=== PATIENT | male | born 1980 | race Caucasian/White ===

== ENCOUNTER 2018-12-09 15:16 | Observation (INO) | payer BC ==
[2018-12-09 16:09] VITALS: BMI 25.1
[2018-12-09] MEDS ORDERED: PANTOPRAZOLE 40 MG TABLET PO STA (16:59)
[2018-12-09 17:07] LABS: Basophils # (A) 0.1 k/uL (0-0.2); Basophils % (A) 2 %; Eosinophils # (A) 0.1 k/uL (0-0.7); Eosinophils % (A) 1 %; HCT 41.9 % (39.0-53.0); HGB 14.3 gm/dL (13.0-17.5); Lymphocytes # (A) 2.4 k/uL (1.0-4.8); Lymphocytes % (A) 33 %; MCH 31.9 pg (25.0-35.0); MCHC 34.2 g/dL (31.0-37.0); MCV 93.2 fL (80.0-100.0); Mean Platelet Volume 6.3; Monocytes # (A) 0.5 k/uL (0-1.0); Monocytes % (A) 8 %; Neutrophils # (A) 3.8 k/uL (1.3-7.7); Neutrophils % (A) 53 %; Platelet Count 431 k/uL (150-450); RBC 4.49 m/uL (4.30-5.90); RDW 12.5 % (11.5-15.5); WBC 7.2 k/uL (3.8-10.6)
[2018-12-09 17:17] LABS: ALT 52 U/L (21-72); AST 31 U/L (17-59); African American GFR (CKD) >90 (>60 ml/min/1.73 sqM); Albumin 4.3 g/dL (3.5-5.0); Alkaline Phosphatase 102 U/L (38-126); Anion Gap 10 mmol/L; Blood Urea Nitrogen 12 mg/dL (9-20); Calcium 9.8 mg/dL (8.4-10.2); Carbon Dioxide 28 mmol/L (22-30); Chloride 101 mmol/L (98-107); Glucose 97 mg/dL (74-99); Potassium 4.3 mmol/L (3.5-5.1); Sodium 139 mmol/L (137-145); Total Bilirubin 0.7 mg/dL (0.2-1.3); Total Protein 7.6 g/dL (6.3-8.2)
[2018-12-09 17:42] LABS: Creatine Kinase MB <0.2 ng/mL (0.0-2.4); Troponin I <0.012 ng/mL (0.000-0.034)
--- NOTE | 2018-12-09 22:08 | XR ---
EXAMINATION TYPE: XR chest 2V DATE OF EXAM: 12/09/2018 COMPARISON: NONE HISTORY: Chest pain TECHNIQUE: Frontal and lateral views of the chest are obtained. FINDINGS: Heart and mediastinum are normal. Lungs are clear. Diaphragm is normal. There are chest le ads. Bony thorax appears normal. IMPRESSION: Normal chest
[2018-12-09] MEDS ORDERED: RX INFO: IV CONTRAST WAS GIVEN 1 EACH MISC MISCELLANE PRN (23:01)
[2018-12-10] MEDS ORDERED: ACETAMINOPHEN TAB 325 MG TAB ONE ×2 (03:48→03:49)
[2018-12-10 07:54] LABS: Hemoglobin A1C 5.2 % (4.0-6.0)
--- NOTE | 2018-12-10 09:36 | CT ---
EXAMINATION TYPE: CT chest w con DATE OF EXAM: 12/10/2018 COMPARISON: Chest x-ray 12/09/2018 HISTORY: Shortness of breath and chest pain CT DLP: 277.8 mGycm Automated exposure control for dose reduction was used. CONTRAST: CT scan of the chest is performed with IV Contrast, patient injected with 100 ml mL of Isovue 370. FINDINGS: LUNGS: The lungs are grossly remarkable for soft tissue mass along the left hemidiaphragm measuring 2 .5 x 1 cm x 2 cm. Some minimal dependent atelectatic changes are present. There is no pleural effus ion or pneumothorax seen. The tracheobronchial tree is patent. MEDIASTINUM: There is mediastinal adenopathy to include the subcarinal location, prevascular and node s, there is left hilar adenopathy. Retrocaval pretracheal node is enlarged, right paratracheal adenop athy noted No pericardial effusion is seen. AORTA: No additional significant abnormality is seen. OTHER: No axillary adenopathy is evident. Bones are unremarkable. IMPRESSION: Mediastinal adenopathy, left lower lobe soft tissue mass, consider lymphoma, metastatic disease. Suggest oncology, pulmonary consult.
--- NOTE | 2018-12-10 10:20 | P.CRDCN ---
History of Present Illness Consult date: 12/10/18 History of present illness: This is a 38-year-old gentleman with no significant past medical history has been experiencing exertional chest tightness and shortness of breath. This has been going on for 2 weeks. Usually rest relieves the symptoms. No associated jaw or arm pain. No nausea vomiting or sweating. Patient is started having some cough and expectoration. No fever or chills. No history of any previous pneumonias. No history of any previous myocardial infarctions. Patient's d- dimer is slightly elevated. Patient had a computed tomography scan of the chest which did not reveal any pulmonary emboli. There is some mediastinal lymph nodes. Patient is going to have an echocardiogram and also stress echo. Pulmonic consult is pending. Further recommendations depend upon the findings on the above tests Review of Systems As per the chart Past Medical History Past Medical History: GERD/Reflux Additional Past Medical History / Comment(s): Occasional low back pain History of Any Multi-Drug Resistant Organisms: None Reported Past Surgical History: Hernia Repair Additional Past Surgical History / Comment(s): R inguinal hernia repair, vasectomy. Past Anesthesia/Blood Transfusion Reactions: Motion Sickness, Postoperative Nausea & Vomiting (PONV) Smoking Status: Former smoker - Past Family History Father Family Medical History: COPD Mother Family Medical History: Rheumatoid Arthritis (RA) Additional Family Medical History / Comment(s): Borderline diabetic Medications and Allergies Home Medications Medication Instructions Recorded Confirmed Type Multivitamins, Thera [Multivitamin 1 tab PO DAILY 12/09/18 12/09/18 History (formulary)] Vitamin B Complex 1 cap PO DAILY 12/09/18 12/09/18 History Allergies Allergy/AdvReac Type Severity Reaction Status Date / Time No Known Allergies Allergy Verified 12/09/18 17:22 Physical Exam Vitals: Vital Signs Temp Pulse Resp BP BP Pulse Ox 12/10/18 07:35 97.9 F 90 18 116/72 99 12/09/18 22:51 72 18 12/09/18 20:24 98.3 F 77 18 131/75 97 12/09/18 20:15 15 12/09/18 16:37 98.1 F 82 16 162/93 97 12/09/18 15:38 98.0 F 78 17 144/85 98 Intake and Output 12/09/18 12/10/18 12/10/18 22:59 06:59 14:59 Intake Total 200 Balance 200 Intake: Oral 200 Other: # Voids 1 Weight 72.7 kg GENERAL EXAM: Patient is alert and oriented and doesn't appear to be in any acute distress HEENT: Normocephalic. Normal reaction of pupils, equal size, normal range of extraocular motion. No erythema or exudates in the throat. NECK: No masses, no nuchal rigidity. CHEST: No chest wall deformity. LUNGS: Equal air entry with no crackles or wheeze. HEART: S1 and S2 normal with no audible mumurs or gallops. Regular rhythm, femorals equal on both sides.. ABDOMEN: No hepatosplenomegaly, normal bowel sounds, no guarding or rigidity. SKIN: No rashes CENTRAL NERVOUS SYSTEM: No focal deficits. EXTREMITIES: No cyanosis, clubbing or edema. Results 12/09/18 16:53 12/09/18 16:53 Cardiac Enzymes 12/09/18 12/09/18 Range/Units 16:53 16:53 AST 31 (17-59) U/L CK-MB (CK-2) <0.2 (0.0-2.4) ng/mL Troponin I <0.012 (0.000-0.034) ng/mL CBC 12/09/18 Range/Units 16:53 WBC 7.2 (3.8-10.6) k/uL RBC 4.49 (4.30-5.90) m/uL Hgb 14.3 (13.0-17.5) gm/dL Hct 41.9 (39.0-53.0) % Plt Count 431 (150-450) k/uL Comprehensive Metabolic Panel 12/09/18 Range/Units 16:53 Sodium 139 (137-145) mmol/L Potassium 4.3 (3.5-5.1) mmol/L Chloride 101 (98-107) mmol/L Carbon Dioxide 28 (22-30) mmol/L BUN 12 (9-20) mg/dL Creatinine 0.74 (0.66-1.25) mg/dL Glucose 97 (74-99) mg/dL Calcium 9.8 (8.4-10.2) mg/dL AST 31 (17-59) U/L ALT 52 (21-72) U/L Alkaline Phosphatase 102 (38-126) U/L Total Protein 7.6 (6.3-8.2) g/dL Albumin 4.3 (3.5-5.0) g/dL Current Medications Generic Name Dose Route Start Last Admin Trade Name Freq PRN Reason Stop Dose Admin Miscellaneous Information 1 each 12/09/18 23:01 Rx Info: Iv Contrast Was Given MISCELLANE 12/11/18 23:02 DAILY PRN Per Protocol Intake and Output 12/09/18 12/10/18 12/10/18 22:59 06:59 14:59 Intake Total 200 Balance 200 Intake: Oral 200 Other: # Voids 1 Weight 72.7 kg 12/09/18 16:53 12/09/18 16:53 EKG Interpretations (text) Sinus rhythm without acute changes Assessment and Plan Assessment: This patient is admitted with exertional chest tightness and shortness of breath. Cardiac enzymes and EKGs are normal. Being scheduled for stress echo and also surface echocardiogram. Further recommendations depend upon the findings on the above tests
--- NOTE | 2018-12-10 10:21 | P.CNPUL ---
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 The pain is started of dull and squeezing across his anterior and lateral chest bilaterally. No cough. No sputum production. No diaphoresis. No sweating. No reported fever chills or night sweats. No constitutional symptoms such as weight loss or diminished appetite. No inhalational injuries. No lymphadenopathy. He does not smoke cigarettes. No hemoptysis. No pleurisy. No recent bouts of pneumonias or respiratory infections. The patient has been in a good state of health. His past medical history essentially negative. His father had emphysema. Angiogram of the chest was done during this current hospital stay. CT showed nonspecific mediastinal lymphadenopathy, including the largest lymph node being in the subcarinal area and smaller lymph nodes in the left hilar. There was another questionable soft tissue density in the left lower lobe area measuring 2.3 cm. No other parenchymal lung abnormalities. Cardiac enzymes have been negative. The patient is scheduled to undergo a echocardiogram and a stress test today. Review of Systems Constitutional: Denies chills, Denies fever Eyes: denies as per HPI, denies blurred vision, denies bulging eye, denies decreased vision, denies diplopia, denies discharge, denies dry eye, denies irritation, denies itching, denies pain, denies photophobia, denies loss of peripheral vision, denies loss of vision, denies tunnel vision/blind spots Ears: deny: decreased hearing, ear discharge, earache, tinnitus Ears, nose, mouth and throat: Denies headache, Denies sore throat Cardiovascular: Reports chest pain Respiratory: Denies cough Gastrointestinal: Reports as per HPI Genitourinary: Reports as per HPI Musculoskeletal: Reports as per HPI Musculoskeletal: absent: ankle pain, ankle stiffness, ankle swelling, as per HPI, elbow pain, elbow stiffness, elbow swelling, foot pain, foot stiffness, foot swelling, hand pain, hand stiffness, hand swelling, hip pain, hip stiffness, hip swelling, knee pain, knee stiffness, knee swelling, shoulder pain, shoulder stiffness, shoulder swelling, wrist pain, wrist stiffness, wrist swelling Integumentary: Denies pruritus, Denies rash Neurological: Reports as per HPI Psychiatric: Reports as per HPI Endocrine: Reports as per HPI Hematologic/Lymphatic: Reports as per HPI Allergic/Immunologic: Reports as per HPI Past Medical History Past Medical History: GERD/Reflux Additional Past Medical History / Comment(s): Occasional low back pain History of Any Multi-Drug Resistant Organisms: None Reported Past Surgical History: Hernia Repair Additional Past Surgical History / Comment(s): R inguinal hernia repair, vasectomy. Past Anesthesia/Blood Transfusion Reactions: Motion Sickness, Postoperative Nausea & Vomiting (PONV) Smoking Status: Former smoker - Past Family History Father Family Medical History: COPD Mother Family Medical History: Rheumatoid Arthritis (RA) Additional Family Medical History / Comment(s): Borderline diabetic Medications and Allergies Home Medications Medication Instructions Recorded Confirmed Type Multivitamins, Thera [Multivitamin 1 tab PO DAILY 12/09/18 12/09/18 History (formulary)] Vitamin B Complex 1 cap PO DAILY 12/09/18 12/09/18 History Allergies Allergy/AdvReac Type Severity Reaction Status Date / Time No Known Allergies Allergy Verified 12/09/18 17:22 Physical Exam Vitals: Vital Signs Temp Pulse Resp BP BP Pulse Ox 12/10/18 07:35 97.9 F 90 18 116/72 99 12/09/18 22:51 72 18 12/09/18 20:24 98.3 F 77 18 131/75 97 12/09/18 20:15 15 12/09/18 16:37 98.1 F 82 16 162/93 97 12/09/18 15:38 98.0 F 78 17 144/85 98 Intake and Output 12/09/18 12/10/18 12/10/18 22:59 06:59 14:59 Intake Total 200 Balance 200 Intake: Oral 200 Other: # Voids 1 Weight 72.7 kg The patient appeared well nourished and normally developed. Vital signs as documented. Head exam is unremarkable. No scleral icterus or corneal arcus noted . Neck is without jugular venous distension, thyromegaly, or carotid bruits. Carotid upstrokes are brisk bilaterally. Lungs are clear to auscultation and percussion. Cardiac exam reveals the PMI to be normally sized and situated. Rhythm is regular. First and second heart sounds normal. No murmurs, rubs or gallops. Abdominal exam reveals normal bowel sounds, no masses, no organomegaly and no aortic enlargement. Extremities are nonedematous and both femoral and pedal pulses are normal.Examination of the skin revealed no evidence of significant rashes, suspicious appearing nevi or other concerning lesions. Neurologically the patient is awake and alert and there is no focal neurological deficit. Results - Laboratory Findings CBC and BMP: 12/09/18 16:53 12/09/18 16:53 PT/INR, D-dimer D-Dimer 0.62 mg/L FEU (<0.60) H 12/09/18 16:53 Abnormal lab findings: Abnormal Labs 12/09/18 16:53 D-Dimer 0.62 H - Diagnostic Findings CT scan - chest: image reviewed Assessment and Plan Plan: 1 nonspecific chest pain, unlikely to be cardiac in nature. 2 abnormal CAT scan of the chest indicating mediastinal lymphadenopathy involving the right paratracheal, subcarinal and left hilar area in addition to a soft density in the left lower lobe measuring 2.3 cm. Possibilities include sarcoidosis, lymphoma. Malignancy of the solid tumor felt to be less likely. Plan Complete the cardiac workup including a cardiac status as an echocardiogram. Obtain an Deniz level. Blood work is normal. social symptoms. Would recommend outpatient follow-up. If positive, will consider biopsying the mediastinal lymph nodes for tissue diagnosis. Going to continue to follow this patient.
[2018-12-10 11:27] VITALS: BP 115/68; PULSE 75; RESP 16; TEMP 98
--- NOTE | 2018-12-10 13:17 | HP ---
HISTORY AND PHYSICAL A 38-year-old gentleman with exertional chest pain and shortness of breath for the past 2 weeks, worsening. He had no nausea, vomiting. He came in for 23 hours to rule out ID. He has elevated D-dimer, so CT of the chest was ordered. He is going to have an echo and a stress echo as he has had exertional chest pain suspicious for unstable angina. FAMILY HISTORY: Family history of coronary artery disease, diabetes mellitus, history of GERD, reflux, possible sleep apnea with severe snoring at night and frequent awakening. SURGERIES: He has had a right inguinal hernia, vasectomy. FAMILY HISTORY: Father COPD. Mother diabetes mellitus, rheumatoid arthritis. Dad has diabetes also. MEDICATIONS: He has no medications. ALLERGIES: Allergies are negative. PHYSICAL EXAMINATION: temp 97 to 98, pulse 70s to 90, respiratory 16 to 18, blood pressure 140s over 85. CARDIOVASCULAR: S1, S2. LUNGS: Decreased breath sounds. HEART: S1, S2. ABDOMEN: Some tenderness to palpation, epigastric. SKIN: No rashes. No focal weakness. No cyanosis, clubbing, edema. Extraocular movements intact. PSYCH: Fair mood and affect. Labs are reviewed. EKG shows sinus rhythm. He is going to do a echo, stress test and CT of the chest. If cleared by Cardiology, I will discharge him home later today. MMODL / IJN: [id number] /
--- NOTE | 2018-12-10 19:11 | ECHOF ---
Referral Reason:chest pain MEASUREMENTS -------- HEIGHT: 170.2 cm WEIGHT: 72.6 kg BP: RVIDd: 3.2 cm (< 3.3) IVSd: 1.0 cm (0.6 - 1.1) LVIDd: 4.2 cm (3.9 - 5.3) LVPWd: 1.0 cm (0.6 - 1.1) IVSs: 1.2 cm LVIDs: 2.9 cm LVPWs: 1.5 cm LA Diam: 3.6 cm (2.7 - 3.8) LAESV Index (A-L): 14.83 ml/m Ao Diam: 2.6 cm (2.0 - 3.7) AV Cusp: 1.8 cm (1.5 - 2.6) LA Diam: 3.1 cm (2.7 - 3.8) MV EXCURSION: 22.169 mm (> 18.000) MV EF SLOPE: 102 mm/s (70 - 150) EPSS: 0.3 cm MV E Cuco: 0.46 m/s MV DecT: 187 ms MV A Cuco: 0.73 m/s MV E/A Ratio: 0.64 RAP: 5.00 mmHg RVSP: 24.79 mmHg TAPSE: 18.74 mm FINDINGS -------- Sinus rhythm. This was a technically good study. LV size, wall thickness and systolic function are normal, with an EF greater than 55%. The left herberth tricular size is normal. Overall left ventricular systolic function is low-normal with, an EF betwe en 50 - 55 %. The right ventricle is normal in size. The left atrial size is normal. Normal LA size by volume 22+/-6 ml/m2. The right atrial size is normal. The aortic valve is trileaflet, and appears structurally normal. No aortic stenosis or regurgitation. Mild mitral annular calcification present. [id number] mitral regurgitation is present. Mild tricuspid regurgitation present. Right ventricular systolic pressure is normal at < 35 mmHg. There is no evidence of pulmonary hypertension. There is no pulmonic regurgitation present. The aortic root size is normal. There is no pericardial effusion. CONCLUSIONS -------- 1. Sinus rhythm. 2. This was a technically good study. 3. LV size, wall thickness and systolic function are normal, with an EF greater than 55%. 4. The left ventricular size is normal. 5. Overall left ventricular systolic function is low-normal with, an EF between 50 - 55 %. 6. The right ventricle is normal in size. 7. The left atrial size is normal. 8. Normal LA size by volume 22+/-6 ml/m2. 9. The right atrial size is normal. 10. The aortic valve is trileaflet, and appears structurally normal. No aortic stenosis or regurgitat ion. 11. Mild mitral annular calcification present. 12. [id number]-[id number] mitral regurgitation is present. 13. Mild tricuspid regurgitation present. 14. Right ventricular systolic pressure is normal at < 35 mmHg. 15. There is no evidence of pulmonary hypertension. 16. There is no pulmonic regurgitation present. 17. The aortic root size is normal. 18. There is no pericardial effusion. PIPELINES SUPERVISOR: Nancy Aragon RDCS
--- NOTE | 2018-12-10 19:12 | DS ---
DISCHARGE SUMMARY DATE OF ADMISSION: 12/09/2018. DATE OF DISCHARGE: 12/10/2018. CONDITION: Stable. PROGNOSIS: Guarded. Ambulate as tolerated. DISCHARGE MEDICATIONS: Ventolin inhaler 2 puffs q.4 hours p.r.n. FINAL DIAGNOSES: 1. Mediastinal atypical chest pain. 2. Mediastinal adenopathy. 3. Soft tissue mass left lower lung, rule out sarcoidosis versus lymphoma. Outpatient biopsy with Dr. Warner who saw the patient in the hospital will be done. Cardiology cleared from cardiac standpoint with negative echo and EKG is normal. Negative troponins x3. Patient will be stabilized as lung biopsy of a lymph node or soft tissue mass and follow up as an outpatient at this point. MMODL / IJN: [id number] /
--- NOTE | 2018-12-10 19:27 | P.STRESS ---
- Stress Test Note Stress Test Results/Findings: Exam Performed: stress echo exercise Exam Date: 12/10/18 Reason for Exam: CP Height: 5 ft 7 in Weight: 72.7 kg Protocol: STRESS ECHO Stage: 5 Duration of Exercise: 13:01 Resting Heart Rate: 81 Resting Blood Pressure: 133/86 Maximum Achieved Heart Rate: 171 Maximum Achieved Blood Pressure: 158/93 85% PMHR: 156 100% PMHR: 184 METS: 13.5 Technologist Comment: Stress Test Results/Findings: This is a 38-year-old gentleman was admitted to the hospital with chest pains. Has history of ischemic heart disease in the family and also complaining of shortness of breath. Stress data: Baseline EKG showed sinus rhythm with a ME interval, QRS duration with mild nonspecific ST-T abnormalities. Blood pressure at rest is 133/86 with pulse rate of 81. Patient walked normal Mike protocol for 13 minutes achieving a maximum heart rate of 171 with a blood pressure 130/80. EKGs taken during and after exercise did not reveal any significant changes from the baseline. Patient did not experience any chest pain. Echo data: Baseline echo images showed normal wall motion and thickening. Exercise echo images showed augmentation of wall motion and thickening in all segments. Final impression: #1. Negative stress test #2. Negative stress echo.
--- NOTE | 2018-12-11 11:34 | ECHOS ---
Stress Test Results/Findings: Exam Performed: stress echo exercise Exam Date: 12/10/18 Reason for Exam: CP Height: 5 ft 7 in Weight: 72.7 kg Protocol: STRESS ECHO Stage: 5 Duration of Exercise: 13:01 Resting Heart Rate: 81 Resting Blood Pressure: 133/86 Maximum Achieved Heart Rate: 171 Maximum Achieved Blood Pressure: 158/93 85% PMHR: 156 100% PMHR: 184 METS: 13.5 Technologist Comment: Stress Test Results/Findings: This is a 38-year-old gentleman was admitted to the hospital with chest pains. Has history of ischemic heart disease in the family and also complaining of shortness of breath. Stress data: Baseline EKG showed sinus rhythm with a NC interval, QRS duration with mild nonspecific ST-T abnormalities. Blood pressure at rest is 133/86 with pulse rate of 81. Patient walked normal Mike protocol for 13 minutes achieving a maximum heart rate of 171 with a blood pressure 130/80. EKGs taken during and after exercise did not reveal any significant changes from the baseline. Patient did not experience any chest pain. Echo data: Baseline echo images showed normal wall motion and thickening. Exercise echo images showed augmentation of wall motion and thickening in all segments. Final impression: #1. Negative stress test #2. Negative stress echo. TETE
== END 2018-12-10 14:50 | disposition home or self-care (01) ==
LOC: 4MS4W 15:23 → 1SOBS 16:00
PROVIDERS: ADMIT Family Medicine; ATTEND Family Medicine
DX: R07.89 Other chest pain (principal); R59.0 Localized enlarged lymph nodes; R06.02 Shortness of breath; R91.8 Other nonspecific abnormal finding of lung field; R79.89 Other specified abnormal findings of blood chemistry; R06.83 Snoring; R05 Cough; K21.9 Gastro-esophageal reflux disease without esophagitis; R94.2 Abnormal results of pulmonary function studies; Z98.52 Vasectomy status; Z87.891 Personal history of nicotine dependence; Z83.3 Family history of diabetes mellitus; Z82.49 Family history of ischemic heart disease and other diseases of the circulatory system; Z83.79 Family history of other diseases of the digestive system; Z82.5 Family history of asthma and other chronic lower respiratory diseases; Z82.61 Family history of arthritis
CPT/HCPCS: 93005 ×2; 93306; 93351; 85379; 80053; 84443; 82553; 82164; 83735; 84484 ×2; 85025; 83036; 71046; 71260; G0379; G0378 ×2; Q9967; 86677

== ENCOUNTER → 2018-12-27 | Outpatient (CLI) | payer BC ==
--- NOTE | 2018-12-30 06:22 | PE ---
EXAMINATION TYPE: PET CT fusion skull to thigh DATE OF EXAM: 12/27/2018 COMPARISON: Chest CT December 10, 2018 HISTORY: Mediastinal lymphadenopathy. Abnormal CT. TECHNIQUE: Following the intravenous administration of 12.15 mCi of F-18 FDG, whole body images are performed from the skull base to the midthigh. Images are reviewed on the computer in the coronal, a xial, and sagittal planes. Reconstructed rotating images are created on independent workstation and reviewed on the computer. A noncontrast CT is performed in conjunction with the PET scan. SCAN: Initial Scan FINDINGS: Mean SUV mediastinum: 1.04 Mean SUV liver: 2.03 SKULL BASE AND NECK: Suspicious hypermetabolic right supraclavicular lymph node measures 1.4 x 0.8 c m axial image 69, max SUV is 3.39. CHEST, MEDIASTINUM, AND HILAR REGION: Suspicious hypermetabolic left hilar mass or adenopathy measuri ng approximately 2.1 x 1.2 cm axial image 98, max SUV is 7.35. Abnormal hypermetabolic thoracic lymph nodes including subcentimeter lymph nodes prevascular space. E nlarged anterior superior mediastinal lymph node measuring 1.3 x 1.0 cm axial image 79, Max SUV is. Hypermetabolic subcentimeter right tracheobronchial lymph node axial image 87, max SUV is 4.76. Hyper metabolic subcarinal lymph node measuring 2.1 x 1.3 cm axial image 94, max SUV is 7.3. There is 2.1 x 1.9 cm left basilar nodule axial image 116 that is a metabolic. ABDOMEN AND PELVIS: Abnormal hypermetabolic lymph nodes upper abdomen near manuel hepatis and peripanc reatic region, for reference lymph node between pancreatic head and IVC measures 1.8 x 0.9 cm axial i mage 138 with max SUV of 5.69. Additional adenopathy pancreatic duodenal groove axial image 183 has M ax SUV of 5.84. Mild uptake bilateral testicles could reflect acute bilateral inflammation, correlate clinically. No additional suspicious lymph nodes in the mid to lower abdomen or pelvic region. Mild uptake near s ite of inguinal hernia repair surgery left groin axial image 229 is noted. OSSEOUS STRUCTURES: No areas of abnormal hypermetabolic uptake. OTHER CT: Bilateral subareolar gynecomastia. Slightly enlarged prostate gland bulging and bladder base. Bladder is poorly distended with mild/mode rate concentric wall thickening. Suspect outlet obstruction related to BPH, correlate clinically. IMPRESSION: Suspicious hypermetabolic adenopathy above and below diaphragm worrisome for neoplasm suc h as lymphoma. Correlate clinically.
== END | disposition home or self-care (01) ==
LOC: RADPETMAIN 12:51
PROVIDERS: ATTEND Internal Medicine Critical Care Medicine
DX: R91.8 Other nonspecific abnormal finding of lung field (principal)
CPT/HCPCS: 78815; A9552

== ENCOUNTER → 2019-01-20 | Day surgery (SDC) | payer BC ==
[2019-01-16 14:27] VITALS: BMI 25.0
[~2019-01-20] MED LIST: DEXAMETHASONE SOD PHOSPHATE 10 MG/ML 1 ML VIAL IV ONE; LACTATED RINGERS 1,000 ML IV ONE; LACTATED RINGERS 1,000 ML IV SCH; LIDOCAINE 1% 20 ML VIAL (10MG/ML) FOR IV START INTRADERMA PRN; MIDAZOLAM 2 MG/2 ML VIAL ONE; ONDANSETRON 4 MG/2 ML VIAL IVP ONE; PROPOFOL 10 MG/ML 20 ML VIAL IV ONE; ROCURONIUM BROMIDE 10 MG/ML 10 ML VIAL IV ONE; SCOPOLAMINE 1.5MG/72HR PATCH TRANSDERM ONE; fentaNYL (PF) 50 MCG/ML 2 ML AMP ONE
[2019-01-20] MEDS: HYDROmorphone 0.5 MG/0.5 ML SYRINGE IVP PRN ×2 (12:08→12:20)
[2019-01-20 12:10] VITALS: TEMP 97.5
--- NOTE | 2019-01-20 12:13 | OP ---
OPERATIVE REPORT DATE OF THE SURGERY: 01/20/2019. SURGEON: Dr. Deb Parisi. NURSING ADMIN: Won Nails PREOPERATIVE DIAGNOSIS: Large mediastinal and infradiaphragmatic lymph nodes. POSTOPERATIVE DIAGNOSIS: Large mediastinal and infradiaphragmatic lymph nodes. PROCEDURE: Video mediastinoscopy and biopsy of the 2R lymph nodes. INDICATIONS: Patient is a 38-year-old gentleman worked up for malaise and some night sweats. He had a CAT scan with contrast showing enlarged mediastinal subcarinal as well as some infra diaphragmatic lymph nodes. A transbronchial biopsy was judged not adequate and patient was referred for mediastinoscopy. Risks, benefits, and alternatives were discussed with him and his . They understood them and agreed to proceed. DESCRIPTION OF THE PROCEDURE: Patient in supine position. General endotracheal anesthesia was induced uneventfully. He received 2 g of cefazolin intravenously. He was positioned, positioned with the neck extended with his transverse shoulder roll. The neck and chest were prepped and draped using ChloraPrep. Ioban was used to cover the skin. A circum linear incision was made around 3 cm, one fingerbreadth above the suprasternal notch. This was carried down to the platysma. Subsequently, dissection proceeded longitudinally by opening the superficial cervical fascia going between the strap muscles down to the trachea. Patient is skinny and the innominate artery was in our face. Using blunt dissection, we developed the pretracheal space. It was too tight for video mediastinoscope and we had a good view below the innominate artery where the 2R lymph node we had as a target was placed. Sharp dissection directly showed the lymph node and half of it roughly was biopsied and sent for culture and final pathology. No bleeding noted. The superficial longitudinal cervical fascia was closed with Vicryl 3-0 and the platysma was closed with Vicryl 4-0 in a transverse fashion and the skin in a subcuticular manner with Vicryl 4-0. Patient tolerated the procedure well, was extubated and transferred to the recovery room in stable condition. MMODL / IJN: [id number] /
[2019-01-20 12:21] VITALS: RESP 16
[2019-01-20 13:33] VITALS: PULSE 82
[2019-01-20 13:34] VITALS: BP 162/79
== END | disposition home or self-care (01) ==
LOC: OR 08:47
PROVIDERS: ATTEND Surgery
DX: R59.1 Generalized enlarged lymph nodes (principal); K21.9 Gastro-esophageal reflux disease without esophagitis; Z88.8 Allergy status to other drugs, medicaments and biological substances; Z87.891 Personal history of nicotine dependence; Z79.899 Other long term (current) drug therapy
CPT/HCPCS: 39402; 86900; 86901; 88305; 86850; 88312; 87116; 87102; 87206; J2250; J1100; J2405; J0690; J3010; J2704; J1170

== ENCOUNTER → 2022-12-06 | Outpatient (CLI) | payer BC ==
--- NOTE | 2022-12-07 10:08 | CT ---
EXAMINATION TYPE: CT chest w con CT DLP: 270.3 mGycm, Automated exposure control for dose reduction was used. DATE OF EXAM: 12/06/2022 5:18 PM COMPARISON: Pet/CT 12/27/2018, 12/10/2018 CT CLINICAL INDICATION:Male, 42 years old with history of D86.0 SARCOIDOSIS OF LUNG; PHH, sarcoidosis TECHNIQUE: Multiple axial images were obtained through the chest. Sagittal and coronal reformats were created for review. Contrast used:100 mL of Isovue 370 with IV Contrast (None if empty) Oral contrast used: (None if empty) FINDINGS: LUNGS/ PLEURA: Left basilar mass has decreased in size now measuring 20 x 11, previously 25 x 20 cm i n 2019. AIRWAY: Patent and unremarkable. HEART: Size within normal limits. MEDIASTINUM: No gross evidence of adenopathy. Subcarinal lymph node at the upper limits of normal rosa suring up to 11 mm in transverse dimension. VASCULATURE: No aortic aneurysm. MUSCULOSKELETAL: No acute osseous abnormalities SOFT TISSUES/LYMPH NODES: Unremarkable. LOWER NECK: No significant findings. UPPER ABDOMEN: No significant findings. IMPRESSION: 1. Single subcarinal lymph node measuring up to 11 mm in short axis otherwise no additional evidence for lymphadenopathy or sarcoidosis. 2. Left lower lung pulmonary nodule near the diaphragm measuring 20 x 11 mm. Which is seen dating ba to 2018 and felt to be smaller compared to then. This is not FDG avid on prior PET.
== END | disposition home or self-care (01) ==
LOC: RADCTMAIN 16:43
PROVIDERS: ATTEND Family Medicine
DX: D86.0 Sarcoidosis of lung (principal); R91.1 Solitary pulmonary nodule
CPT/HCPCS: 71260; Q9967

== ENCOUNTER → 2023-06-27 | Outpatient (CLI) | payer BC ==
--- NOTE | 2023-06-27 14:14 | CT ---
EXAMINATION TYPE: CT abdomen pelvis wo con DATE OF EXAM: 06/27/2023 COMPARISON: PET CT fusion 12/27/2018 HISTORY: kidney stone CT DLP: 435.4 mGycm Automated exposure control for dose reduction was used. TECHNIQUE: Helical acquisition of images was performed from the lung bases through the pelvis. FINDINGS: The left lung base mass has decreased slightly in from 19.7 x 12.3 cm to 18.0 x 12.6 cm. There is a t iny satellite nodule which is essentially unchanged. The gallbladder is normal. The peripancreatic head lymph node seen on the prior PET scan are again seen and are essentially unch anged in size. There is no focal masses in the liver, pancreas, spleen or adrenal glands. There is no renal calcification or hydronephrosis. The caliber of the abdominal aorta is normal. The bowel loops are normal in caliber and there is no dilatation or obstruction. There is mild prostatic hypertrophy. There is no pelvic mass or free fluid. There are postsurgical changes in the left inguinal region presumably from prior lymphadenectomy. The re is no recurrent adenopathy in the pelvis. The osseous structures are intact. IMPRESSION: 1. Redemonstration of left lung mass which has decreased slightly in interval. 2. Essentially no change in the peripancreatic enlarged lymph nodes which were identified on PET CT d ated 12/27/2018. 3. No renal calcifications or hydronephrosis 4. Mild prostatic hypertrophy
== END | disposition home or self-care (01) ==
LOC: RADCTMAIN 07:48
PROVIDERS: ATTEND Family Medicine
DX: N20.2 Calculus of kidney with calculus of ureter (principal); R91.8 Other nonspecific abnormal finding of lung field; N40.0 Benign prostatic hyperplasia without lower urinary tract symptoms
CPT/HCPCS: 74176

== ENCOUNTER → 2024-02-06 | Outpatient (CLI) | payer BC ==
--- NOTE | 2024-02-06 16:54 | XR ---
EXAMINATION TYPE: XR chest 2V DATE OF EXAM: 02/06/2024 4:42 PM COMPARISON: Chest radiographs from 12/09/2018 CLINICAL INDICATION: Male, 43 years old with history of J44.9 CHRONIC OBSTRUCTIVE PULMONARY DISEASE, UNSPE; [facility] TECHNIQUE: XR chest 2V Frontal and lateral views of the chest. FINDINGS: Lungs/Pleura: There is no evidence of pleural effusion, focal consolidation, or pneumothorax. Pulmonary vascularity: Unremarkable. Heart/mediastinum: Cardiomediastinal silhouette is unremarkable. Musculoskeletal: No acute osseous pathology. Other findings: None IMPRESSION: No acute cardiopulmonary disease/process. [facility], , 02/06/2024 4:52 PM
== END | disposition home or self-care (01) ==
LOC: RADXRMAIN 16:28
PROVIDERS: ATTEND Family Medicine
DX: J44.9 Chronic obstructive pulmonary disease, unspecified (principal)
CPT/HCPCS: 71046

== ENCOUNTER → 2024-03-31 | Outpatient (CLI) | payer BC ==
--- NOTE | 2024-03-31 12:03 | CT ---
EXAMINATION TYPE: CT chest w con DATE OF EXAM: 03/31/2024 7:52 AM COMPARISON: None. 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 Reconstructed images are reviewed on [employer] computer in the coronal plane. Contrast used:100 mL of with IV Contrast, (none if empty) Oral contrast used: (none if empty) CT DLP: 282.6 mGycm, Automated exposure control for dose reduction was used. FINDINGS: Portion of the thyroid visualized is normal. There is a lobular density at the left diaphragm measuring 1.4 cm, present previously. Series 4 image 42. There is a stable 0.3 cm punctate nodular density within the anterior right midlung. Series 4 image 2 8. Some mild compressive atelectasis may be within the dependent lung bases. There is a stable 1.1 cm subcarinal lymph node present. Enlarged mediastinal or hilar adenopathy is n ot otherwise identified. The ascending aorta diameter at the level of the main pulmonary artery is 3 .0 cm. The main pulmonary artery diameter at the bifurcation is 2.[address] sections are obtained through the upper abdomen. Abdomen is essentially unremarkable. IMPRESSION: 1. Stable CT chest. [facility], , 03/31/2024 12:00 PM
== END | disposition home or self-care (01) ==
LOC: RADCTMAIN 07:32
PROVIDERS: ATTEND Family Medicine
DX: D86.0 Sarcoidosis of lung (principal)
CPT/HCPCS: 71260; Q9967